=== PATIENT | female | born 1930 | race Caucasian/White ===

== ENCOUNTER → 2016-05-30 | Outpatient (CLI) | payer MEDICARE, BC ==
[~2016-05-30] MED LIST: ASPIRIN81 M1 PO; ASPIRIN81 M2 PO; ASPIRIN81 MG PO; AZITHROMYCIN500 MG PO; CAL-GEST200 MG PO; FOSAMAX70 MG PO; GUAIFENESIN LA600 M1 PO; IBUPROFEN400 MG PO; LEVAQUIN PO; LEVAQUIN750 M1 PO; LEVOFLOXACIN750 MG PO; LOPRESSOR PO; METOPROLOL SUCC50 MG PO; NEXIUM20 MG PO; PREDNISONE PO; REMERON15 MG PO; TOPROL XL 50 MG50 MG PO; VIBRAMYCIN100 M1 PO; XOPENEX1.25 MG/3 IH; ZETIA PO; ZITHROMAX1 G/PKT PO
--- NOTE | ~2016-05-30 | CT57 ---
[facility] A Service of [facility] & [facility] RADIOLOGY TEXT RESULTS PATIENT: [facility]OR [facility] UN[facility] #: [id number] AGE: [address]: Josie Michael SEX: F ORDER DR: [id number] [facility] [address] [place], [place] [address] [id number] O MR#: [id number] Acc #: [id number] NAME: YANA SOTOMAYOR. : 1930 SEX: F STUDY DATE/TIME: 05/30/2016 13:51 UNIT: [facility] ROOM: STUDY DESCRIPTION: CT Chest Wo Cont Attending Physician: Josie Michael A.P.R.N. Referring Physician: Josie Michael A.P.R.N. Ordering Physician: Josie Michael A.P.R.N. Primary Care Physician: Lashawn Rodriguez M.D. MEDICAL IMAGING REPORT This report is preliminary unless electronic signature is present EXAM CT chest, without contrast. HISTORY Productive cough and shortness of air for the past [address] of the chest. This CT exam was performed with one or more of the following radiation dose reduction techniques: automatic exposure control, adjustment of mA and/or kV according to patient size, and iterative reconstruction. COMPARISON STUDIES 12/06/2015 FINDINGS Emphysema. Lungs are hyperexpanded. Redemonstration of chronic opacities in the right mid lung and both lower lobes. Some opacity in the lateral left lung base is increased from the previous study. Opacities in the right lung base are similar, but slightly improved. Right middle lobe opacities are also similar, but slightly improved. No pneumothorax or significant pleural fluid. Cardiomegaly. No adenopathy. Calcified left thyroid nodules stable. No acute findings are seen in the included upper abdomen. No aggressive-appearing bone lesion. IMPRESSION 1. Chronic opacities in the mid to lower lung zones. Opacities in the right middle lobe and lower lobe are persistent, but slightly improved. Opacity in the left lung base is slightly increased from the prior. Findings are most in keeping with a chronic infectious or inflammatory process, possibly with superimposed pneumonia in the lateral left lung base. [facility]. [facility] A Service of [facility] & [facility] RADIOLOGY TEXT RESULTS PATIENT: YANA SOTOMAYOR LOCATION: [facility] : 32 UNIT #: [id number] AGE: [address]: Josie Michael SEX: F ORDER DR: 2. Hyperexpansion. Dictated by... Elfego Porras M.D. THIS IS AN ELECTRONICALLY VERIFIED REPORT Elfego Porras M.D. at 05/31/2016 7:05 AM SOPHIE/michelle TD: 05/30/2016 19:15 JOB #: [id number] MEDICAL IMAGING REPORT COPY
== END | disposition home or self-care (01) ==
LOC: CCAT 13:35
DX: J18.9 Pneumonia, unspecified organism (principal); R91.8 Other nonspecific abnormal finding of lung field
CPT/HCPCS: 71250